=== PATIENT | female | born 1970 | race Caucasian/White ===

== ENCOUNTER 2021-10-12 20:09 | Emergency (ER) | payer OTHER ==
[~2021-10-12 20:09] MED LIST: HCTZ25 MG PO; IMITREX100 MG PO; NORCO 5-325 TA1 EACH PO; OMEPRAZOLE40 MG PO; PRISTIQ ER50 MG PO; STOOL SOFTENER1 EACH PO; TOPROL XL 25MG25 MG PO; VALTREX *OUT OF1 GM PO; VIT D
[2021-10-12 21:07] LABS: BASOPHIL 0.4 % (0-2); EOSINOPHIL 0.2 % (0-5); HCT 42.2 % (37.0-47.0); HGB 14.1 g/dl (12.5-16.0); LYMPHOCYTE 9.1 % (15-48); MCH 31.2 pg (25.0-31.0); MCHC 33.4 g/dL (32.0-36.0); MCV 93.4 fL (78.0-100.0); MPV 10.4 fL (6.0-9.5); NEUTROPHIL 80.8 % (41-80); NRBC 0; PLT 273 K/uL (150-400); RBC 4.52 M/uL (4.20-5.40); RDW 12.5 % (11.5-14.0); WBC 15.5 K/uL (4.0-10.5)
[2021-10-12 21:25] LABS: ALBUMIN 3.1 g/dL (3.4-5.0); BILIRUBIN - TOTAL 0.3 mg/dL (0.2-1.0); BUN/CREAT RATIO (CALC) 14.7 RATIO; CREATININE 0.68 mg/dL (0.51-0.95); GLOBULIN (CALCULATION) 4.8 g/dL; POTASSIUM 3.2 mmol/L (3.5-5.1); TOTAL PROTEIN 7.9 g/dL (6.4-8.2)
[2021-10-12 21:34] LABS: LACTIC ACID 0.9 mmol/L (0.4-1.9)
[2021-10-12 21:44] LABS: CORONAVIRUS 2019 SARS-COV-2 NEGATIVE (NEGATIVE); INFLUENZA A NAA NEGATIVE (NEGATIVE)
[2021-10-12] MEDS ORDERED: CIPRO500 MG PO (22:09)
[2021-10-12] MEDS ORDERED: PROVENTIL HFA6.7 GM INH (22:12)
== END 2021-10-12 22:36 | disposition home or self-care (01) ==
LOC: FER 20:09
PROVIDERS: Physician Assistant
DX: J18.9 Pneumonia, unspecified organism (principal); I10 Essential (primary) hypertension; K21.9 Gastro-esophageal reflux disease without esophagitis; F17.210 Nicotine dependence, cigarettes, uncomplicated; Z88.0 Allergy status to penicillin; Z79.899 Other long term (current) drug therapy; Z20.822 Contact with and (suspected) exposure to COVID-19
CPT/HCPCS: 36415; 71045; 80053; 83605; 84145; 85025; J7030; U0002